=== PATIENT | female | born 2000 | race Caucasian/White ===

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

== ENCOUNTER 2019-01-23 16:17 | Emergency (ER) | payer SELFPAY ==
--- NOTE | 2019-01-23 17:07 | ER Document Report ---
ED Medical Screen (RME) - General Chief Complaint: Vaginal Bleeding Stated Complaint: ISSUE Time Seen by Provider: 01/23/19 17:02 Mode of Arrival: Ambulatory Information source: Patient Notes: This 18-year-old female presents emergency department with abdominal cramping since early in the morning. Patient reports she went out to [employer] out walk around and she woke up with abdominal cramping last night. She reports she took Tylenol without relief of symptoms rating the cramping 4 out of 5. She denies other symptoms such as fever vomiting diarrhea. 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 She reports on her last since we cannot see the on the ultrasound, you will need a beta-hCG blood level repeated. Please return to the outpatient lab at [facility] with your lab slip for this repeat test in 48 hours. Since ectopic can cause in a matter of hours, you must not be left alone at this time until you are cleared by your doctor for this diagnosis. Until then please mainatain pelvic rest, meaning no sex until cleared to do so. Return right away with vaginal bleeding or severe pain. She lost amniotic fluid and they had to put her on bedrest. She reports she is approximately 18 weeks G3, P1. Patient reports that she has not had care because her Medicaid has not gone through. She denies pain with void. She denies vaginal bleeding. She reports normal vaginal discharge. I have greeted and performed a rapid initial assessment of this patient. A comprehensive ED assessment and evaluation of the patient, analysis of test re sults and completion of the medical decision making process will be conducted by additional ED providers. Dictation of this chart was performed using voice recognition software; therefore, there may be some unintended grammatical errors. TRAVEL OUTSIDE OF THE [place] IN LAST 30 DAYS: No - Related Data Allergies/Adverse Reactions: Penicillins Allergy (Verified 01/23/19 16:19) Past Medical History Renal/ Medical History: Reports: Hx Ovarian Cysts. Denies: Hx Peritoneal Dialysis Past Surgical History: Reports: Hx Orthopedic Surgery - foot - Immunizations Immunizations up to date: Yes Physical Exam - Vital signs Vitals: Temp Pulse Resp BP Pulse Ox 98.3 F 87 18 107/54 L 96 01/23/19 16:21 01/23/19 16:21 01/23/19 16:21 01/23/19 16:21 01/23/19 16:21 Course - Vital Signs Vital signs: Temp Pulse Resp BP Pulse Ox 98.3 F 87 18 107/54 L 96 01/23/19 16:21 01/23/19 16:21 01/23/19 16:21 01/23/19 16:21 01/23/19 16:21
[2019-01-23 17:42] LABS: ABSOLUTE EOSINOPHILS # (AUTO) 0.1 10^3/uL (0.0-0.6); ABSOLUTE LYMPHOCYTES (AUTO) 1.9 10^3/uL (0.5-4.7); ABSOLUTE MONOCYTES (AUTO) 0.5 10^3/uL (0.1-1.4); ABSOLUTE NEUT (AUTO) 5.5 10^3/uL (1.7-8.2); BASOPHILS % (AUTO) 0.2 % (0-2); EOSINOPHILS % (AUTO) 1.2 % (0-6); HEMATOCRIT 30.8 % (36.0-47.0); HEMOGLOBIN 10.9 g/dL (12.0-15.5); LYMPHOCYTES % (AUTO) 23.4 % (13-45); MEAN CORPUSCULAR HEMOGLOBIN 28.2 pg (27.0-33.4); MEAN CORPUSCULAR HGB CONC 35.4 g/dL (32.0-36.0); MEAN CORPUSCULAR VOLUME 80 fl (80-97); MONOCYTES % (AUTO) 6.5 % (3-13); PLATELET COUNT 178 10^3/uL (150-450); RED BLOOD COUNT 3.87 10^6/uL (3.72-5.28); RED CELL DISTRIBUTION WIDTH 14.9 % (11.5-14.0); SEGMENTED NEUTROPHILS % (AUTO) 68.7 % (42-78); TOTAL CELLS COUNTED % (AUTO) 100 %
[2019-01-23 17:50] LABS: APPEARANCE,URINE CLOUDY; BILIRUBIN,URINE NEGATIVE (NEGATIVE); COLOR,URINE YELLOW; GLUCOSE, URINE NEGATIVE (NEGATIVE); KETONES,URINE NEGATIVE (NEGATIVE); LEUKOCYTE ESTERASE,URINE SMALL (NEGATIVE); NITRITE,URINE NEGATIVE (NEGATIVE); PROTEIN,URINE NEGATIVE (NEGATIVE); UROBILINOGEN,URINE NEGATIVE mg/dL (<2.0)
[2019-01-23 18:02] LABS: ALBUMIN 3.6 g/dL (3.7-5.6); ALKALINE PHOSPHATASE 64 U/L (50-135); ANION GAP 7 (5-19); ASPARTATE AMINO TRANSFERASE 20 U/L (5-30); BILIRUBIN,DIRECT 0.2 mg/dL (0.0-0.4); BILIRUBIN,TOTAL 0.3 mg/dL (0.2-1.3); BLOOD UREA NITROGEN 7 mg/dL (7-20); CALCIUM 8.9 mg/dL (8.4-10.2); CARBON DIOXIDE 24 mmol/L (22-30); CHLORIDE 106 mmol/L (98-107); GLUCOSE 88 mg/dL (75-110); POTASSIUM 3.7 mmol/L (3.6-5.0); TOTAL PROTEIN 6.4 g/dL (6.3-8.2)
--- NOTE | 2019-01-23 18:33 | RADIOLOGY REPORT (SQ) ---
EXAM DESCRIPTION: U/S OB 14+ TRNABD 1GES W/O DOP COMPLETED DATE/TIME: 01/23/2019 6:16 pm REASON FOR STUDY: preg. 18 w abd cramping COMPARISON: PELVIC ULTRASOUND 11/29/2018 TECHNIQUE: Static and Dynamic grayscale imaging performed of gravid uterus using transabdominal appr oach. Additional selected color Doppler and spectral images recorded. All stored on PACS. LIMITATIONS: None. FINDINGS: FETUSES SEEN:1 EGA: 17 weeks 4 days Calculated using BPD,FL,HC,AC documented on images. No discrepancy with clinica l dates. MANNY: 06/29/2019 EFW: 184 grams PERCENTILE: 97% LVP: 4.2 cm PLACENTA: Posterior. GRADE: I PRESENTATION: Vertex ANATOMY: HEART RATE: 152 beats per minute. FOUR CHAMBER HEART: Visualized. THREE VESSEL CORD: Yes. CORD INSERTION: Visualized. KIDNEYS AND BLADDER: Visualized. Appear normal. STOMACH: Visualized. Appears normal. SPINE: Normal as visualized. BRAIN AND LATERAL VENTRICLES: Visualized. Appear normal. OTHER: No other significant finding. MATERNAL ADNEXA: Maternal ovaries not visualized. CERVICAL LENGTH: 2.6 cm Closed. OTHER: No other significant finding. IMPRESSION: LIVING INTRAUTERINE . ESTIMATED GESTATIONAL AGE 17 weeks 4 days NO VISUALIZED ANOMALIES OR OTHER ACUTE FINDINGS. Trimester of : Second trimester - 13 weeks 1 day to 27 weeks 6 days. TECHNICAL DOCUMENTATION: JOB ID: [id number] [employer]- All Rights Reserved Reading location - IP/workstation name: [email or web address]
--- NOTE | 2019-01-23 19:06 | ER Document Report ---
ED General - General Chief Complaint: Vaginal Bleeding Stated Complaint: ISSUE Time Seen by Provider: 01/23/19 17:02 Mode of Arrival: Ambulatory Notes: 18-year-old female G3, P1 approximately 18-week female presents emergency department with abdominal cramping since early in the morning. Patient reports she went out to [employer] out walk around and she woke up with abdominal cramping last night. She reports she took Tylenol without relief of symptoms rating the cramping 4 out of 5. She denies other symptoms such as fever vomiting diarrhea. Patient reports that she has not had care because her Medicaid has not gone through. She denies pain with void. She denies vaginal bleeding. She reports normal vaginal discharge. TRAVEL OUTSIDE OF THE [place] IN LAST 30 DAYS: No - Related Data Allergies/Adverse Reactions: Penicillins Allergy (Verified 01/23/19 16:19) Past Medical History - General Information source: Patient - Social History Smoking Status: Never Smoker Chew tobacco use (# tins/day): No Frequency of alcohol use: None Drug Abuse: None Family History: Reviewed & Not Pertinent Patient has suicidal ideation: No Patient has homicidal ideation: No Renal/ Medical History: Reports: Hx Ovarian Cysts. Denies: Hx Peritoneal Dialysis Past Surgical History: Reports: Hx Orthopedic Surgery - foot - Immunizations Immunizations up to date: Yes Review of Systems - Review of Systems Constitutional: See HPI EENT: No symptoms reported Cardiovascular: See HPI Respiratory: See HPI Gastrointestinal: See HPI Genitourinary: See HPI Female Genitourinary: See HPI Musculoskeletal: See HPI Skin: No symptoms reported Hematologic/Lymphatic: No symptoms reported Neurological/Psychological: No symptoms reported Physical Exam - Vital signs Vitals: Temp Pulse Resp BP Pulse Ox 98.3 F 87 18 107/54 L 96 01/23/19 16:21 01/23/19 16:21 01/23/19 16:21 01/23/19 16:21 01/23/19 16:21 - Notes Notes: PHYSICAL EXAMINATION: Reviewed vital signs and charting by RN GENERAL: Alert, interacts well. No acute distress. HEAD: Normocephalic, atraumatic. EYES: Pupils equal and round. Extraocular movements intact. NECK: Full range of motion. Trachea midline. EXTREMITIES: Moves all 4 extremities spontaneously. No edema, No cyanosis. PSYCH: Normal affect, normal mood. SKIN: Warm, dry, normal turgor. No rashes or lesions noted. Course - Re-evaluation Re-evalutation: 01/23/19 19:16 Patient presents asymptomatic other than some lower abdominal cramping most lik sherrell secondary to activity yesterday. No abnormal discharge, no bleeding, normal obstetrics ultrasound. Patient was very rude and dismissive when I handed her the ultrasound report in the room. Strictly asked for a disk and had no concerns. Based on labs and ultrasound there is nothing concerning here and she is stable for discharge. - Vital Signs Vital signs: Temp Pulse Resp BP Pulse Ox 98.3 F 87 18 107/54 L 96 01/23/19 16:21 01/23/19 16:21 01/23/19 16:21 01/23/19 16:21 01/23/19 16:21 - Laboratory Result Diagrams: 01/23/19 17:10 01/23/19 17:10 Laboratory results interpreted by me: 01/23/19 01/23/19 01/23/19 17:10 17:10 17:10 Hgb 10.9 L Hct 30.8 L RDW 14.9 H Creatinine 0.41 L Albumin 3.6 L Ur Leukocyte Esterase SMALL H Discharge - Discharge Clinical Impression: Abdominal cramping affecting Condition: Good Disposition: HOME, SELF-CARE Additional Instructions: You were seen in the emergency department for abdominal cramping. It is most likely because you are walking around last night. Your ultrasound was normal. You can request a copy of the disc by going to medical records after 24 hours. If you develop worsening, severe cramping, vaginal bleeding, abnormal vaginal discharge, dizziness/lightheadedness, intractable nausea or vomiting, acute s hortness of breath or chest pain, you pass out or you have any other concerning symptoms return to the emergency department. Please establish care with an [employer] SUPERVISOR.
[2019-01-23 19:25] VITALS: BP 107/80
== END 2019-01-23 19:21 | disposition home or self-care (01) ==
LOC: ER 16:17
DX: O26.92 Pregnancy related conditions, unspecified, second trimester (principal); R10.9 Unspecified abdominal pain; Z3A.18 18 weeks gestation of pregnancy; Z88.0 Allergy status to penicillin
CPT/HCPCS: 36415; 76805; 80053; 81001; 85025

== ENCOUNTER 2019-02-07 10:06 | Emergency (ER) | payer SELFPAY ==
[2019-02-07 10:13] VITALS: BP 115/72
[2019-02-07] MEDS ORDERED: NORMAL SALINE 1000 ML 1,000 ML IV ONE (10:39)
--- NOTE | 2019-02-07 10:42 | ER Document Report ---
ED Medical Screen (RME) - General Chief Complaint: Vaginal Bleeding Stated Complaint: VAGINAL BLEEDING Time Seen by Provider: 02/07/19 10:24 Mode of Arrival: Ambulatory Information source: Patient Notes: 18-year-old female presented to ED for complaint of vaginal bleeding pelvic pain and increased cramping and she is somewhere between 19 and 20 weeks . I have spoken with labor and delivery and they said unless she is 20 weeks she cannot come up to labor and delivery. I have spoken with Dr. Pena who stated he would come and examined the patient himself in the emergency room. I have spoken with the charge nurse and asked her to please be sure that 1 of the ER providers goes in and examined the patient. Patient is alert oriented respirations regular and unlabored speaking in full sentences. Basic labs and ultrasound have been ordered on the patient. Her last RhoGam was B+ I have greeted and performed a rapid initial assessment of this patient. A comprehensive ED assessment and evaluation of the patient, analysis of test results and completion of medical decision making process will be conducted by an additional ED providers. Dictation of this chart was performed using voice recognition software; therefore, there may be some unintended grammatical errors. TRAVEL OUTSIDE OF THE [place] IN LAST 30 DAYS: No - Related Data Allergies/Adverse Reactions: Penicillins Allergy (Verified 01/23/19 16:19) Past Medical History Renal/ Medical History: Reports: Hx Ovarian Cysts. Denies: Hx Peritoneal Dialysis Past Surgical History: Reports: Hx Orthopedic Surgery - foot - Immunizations Immunizations up to date: Yes Physical Exam - Vital signs Vitals: Temp Pulse Resp BP Pulse Ox 98.2 F 94 H 15 115/72 100 02/07/19 10:12 02/07/19 10:12 02/07/19 10:12 02/07/19 10:12 02/07/19 10:12 Course - Vital Signs Vital signs: Temp Pulse Resp BP Pulse Ox 98.2 F 94 H 15 115/72 100 02/07/19 10:12 02/07/19 10:12 02/07/19 10:12 02/07/19 10:12 02/07/19 10:12
--- NOTE | 2019-02-07 11:12 | ER Document Report ---
HPI - HPI Patient complains to provider of: vaginal spotting in Time Seen by Provider: 02/07/19 10:24 Onset: Yesterday Onset/Duration: Gradual, Waxing and waning Quality of pain: No pain Severity: Mild Context: 18 Yr old female patient, with the listed pmh, here for vaginal spotting in second trimester for 2 days. she states she is approx 19w and 5 days . Denies heavy vaginal bleeding, clots, acute blood loss symptoms, or passage of recognizable tissue. No abdominal pain. Last menstrual period September 17, 2018. She plans to follow-up with the health department for her future [facility] care. She is . No abdominal surgeries. No history of fibroids, endometriosis, or renal stones. Normal bowel movements. No UTI symptoms. No URI symptoms. No recent antibiotics or steroids. No history of diabetes or asthma. No vaginal discharge/complaints/lesions or concerns for STDs. No ripping or tearing sensation. Hasn't taken anything for her symptoms. No excessive NSAID use, Tylenol use, or EtOH. No prior history of gallbladder disease, pancreatitis, ulcers, GI bleed, GERD, IBS, Crohn's, or UC. no change in color or caliber or stool. no blood thinners. no fall or trauma. no other associated sx. Similar symptoms previously: No Recently seen / treated by doctor: No - ROS Systems Reviewed and Negative: Yes All other systems reviewed and negative - to include 10 systems, unless mentioned in the hpi - REPRODUCTIVE LMP: 09/22/18 Reproductive: REPORTS: : Past Medical History - General Information source: Patient - Social History Smoking Status: Never Smoker Frequency of alcohol use: None Drug Abuse: None Family History: Reviewed & Not Pertinent Patient has suicidal ideation: No Patient has homicidal ideation: No Renal/ Medical History: Reports: Hx Ovarian Cysts. Denies: Hx Peritoneal Dialysis Past Surgical History: Reports: Hx Orthopedic Surgery - foot - Immunizations Immunizations up to date: Yes Vertical Provider Document - CONSTITUTIONAL Agree With Documented VS: Yes Exam Limitations: No Limitations General Appearance: No Apparent Distress Notes: >>>> PHYSICAL_EXAM: GENERAL_APPEARANCE: well_nourished, alert, cooperative, no_acute_distress, no_obvious_discomfort. Pleasant, young female, smiling, speaking in full sentences, in no sign of pain or resp distress, easily sitting up, boyfriend at bedside VITALS: reviewed, see vital signs table. HEAD: normocephalic, atraumatic. no rashid signs. no raccoon eyes. EYES: PERRL, EOMI, (-)scleral icterus. NOSE: no_nasal_discharge. MOUTH: (-)decreased moisture. THROAT: no_tonsilar_inflammation/hypertrophy/exudate NECK: supple, no_neck_tenderness, full rom. full strength. BACK: no midline_back_tenderness. no step offs or deformities CHEST_WALL: no_chest_tenderness. LUNGS: no_wheezing, (-)accessory muscle use, good air exchange bilateral. HEART: normal_rate, normal_rhythm, ABDOMEN: normal_BS, soft, abdomen-diffuse, non-tender, uterus palpated just below the umbilicus, (-)guarding, (-)rebound, no distension or peritoneal signs. neg murphys. neg mcburneys. no cva tenderness. neg heel strike. neg obturator. neg psoas. neg rovsign. PELVIC: performed by dr guillermo [facility], who came down to the ER to evaluate her, so this wasn't repeated, and swabs for wet prep and gc/chlam taken vaginally. please refer to dr guillermo's note for details of the pelvic exam. RECTAL: deferred EXTREMITIES: strength 5/5 in all_extremities, good pulses in all_extremities, no_edema, no_swelling\tenderness. full rom. normal gait. good hand chute man. brisk cap refill. SKIN: warm, dry, good_color, no_rash. no grossly visible overlying skin changes to suggest trauma NEURO: motor_intact, sensory_intact. MENTAL_STATUS: normal_affect, speech_clear, oriented_X_3, responds_appropriately to questions. - INFECTION CONTROL TRAVEL OUTSIDE OF THE [place] IN LAST 30 DAYS: No Course - Re-evaluation Re-evalutation: 02/07/19 11:32 Pt here for vaginal spotting in second trimester since yest intermittently. She has no abdominal tenderness to palpation on exam. Labs were unremarkable other than a mild anemia which is chronic and at her baseline and chlamydia positive on vaginal swab. she denies any heavy bleeding or acute blood loss sx. She is blood type B+ and doesn't require RhoGam. Her transvaginal OB ultrasound showed a living IUP at 19w 5d with fht at 153 bpm and was otherwise neg for anything acute per radiology and reviewed by myself. Dr. Guillermo, on-call [facility], was gracious enough to come down to the ER and evaluate the patient. He did perform a pelvic exam himself and stated that the cervix was closed and there was no bleeding in the vault; however, pt did have a retained tampon that he removed completely intact and without complication, and he advised as long as her labs and ultrasound were negative the patient was stable for discharge home and no further work-up was required here today and she did not need to go upstairs to OB for further monitoring and could f/u closely with obgyn out pt for further workup of her . He also advised to get a gonorrhea and chlamydia swab along with a wet prep swab which I did collect. I did not repeat the rest of the pelvic exam since he already had done it, please refer to his note for details of his hnp and pelvic exam. She had no concerns for STDs however her chlamydia did come back positive prior to her dc and US resulting. she is pcn allergic with hives and refused rocephin, so 1g of azithromycin was recommended per review of utd on tx of chlamydia, and this was given to the pt along with merarifrhailey. Again, Dr. Guillermo did inform me that the patient did have a retained tampon at that apparently had been in there since September when she had her last period. She has no signs of toxic shock syndrome and he advised no further workup or tx needed in regards to this and she was stable for close out pt f/u of this also. advised pelvic rest. no heavy lifting. prenatals. tylenol prn any pain. no intercourse while symptomatic, untile her partner gets tested/treated, and for atleast a week and after she has repeat testing to insure she is chlamydia and gonorrhea free. advised to f/u with OBGYN in 1-2 days. return for any worsening symptoms. vss. well appearing. satting well on ra. neurononfocal. pt understands and agrees to plan. On reexam, pt improved with tx listed. remained stable. nontoxic. well appearing. pain controlled. tolerating po. requesting to go home. serial abd exams remain benign. case discussed with ER Attending, Dr. Bermeo and Dr. Guillermo, who directed and agrees with plan of care and advised no further workup indicated at this time and pt is stable for dc home with close f/u with obgyn. Documentation achieved through voice recording which my lead to some occasional accidental typographical errors. Extensive efforts have been made to proof read documentation to make sure these are the least as possible. Category Date Time Status U/S OB 14+ TRNABD 1GES W/O DOP [US] Stat Exams 02/07/19 10:33 Ordered CBC WITH DIFF [HEME] Stat Lab 02/07/19 11:06 Received [facility] PCR ENDO INHOUSE [MO] Stat Lab 02/07/19 11:29 Uncollected COMPREHENSIVE METABOLIC PANEL [CHEM] Stat Lab 02/07/19 11:06 Received HCG QUANTITATIVE [CHEM] Stat Lab 02/07/19 11:28 Ordered URINALYSIS [URIN] Stat Lab 02/07/19 10:34 Uncollected WET MOUNT [MO] Stat Lab 02/07/19 11:28 Uncollected Normal Saline 1000 ml [NaCl 0.9% 1000 ml IV Soln] 1,000 Med 02/07/19 10:39 Active ml IV NOW - Vital Signs Vital signs: Temp Pulse Resp BP Pulse Ox 98.2 F 94 H 15 115/72 100 02/07/19 10:12 02/07/19 10:12 02/07/19 10:12 02/07/19 10:12 02/07/19 10:12 Temp Pulse Resp BP Pulse Ox 02/07/19 10:12 98.2 F 94 H 15 115/72 100 - Laboratory Result Diagrams: 02/07/19 11:06 02/07/19 11:06 Laboratory results interpreted by me: Labs- Entire Visit 02/07/19 02/07/19 02/07/19 11:06 11:06 11:06 WBC 9.3 RBC 3.53 L Hgb 10.0 L Hct 28.4 L MCV 80 MCH 28.3 MCHC 35.2 RDW 14.4 H Plt Count 174 Lymph % (Auto) 14.7 Addison % (Auto) 6.2 Eos % (Auto) 0.8 Baso % (Auto) 0.1 Absolute Neuts (auto) 7.3 Absolute Lymphs (auto) 1.4 Absolute Monos (auto) 0.6 Absolute Eos (auto) 0.1 Absolute Basos (auto) 0.0 Seg Neutrophils % 78.2 H Sodium 135.5 L Potassium 3.7 Chloride 108 H Carbon Dioxide 21 L Anion Gap 7 BUN 6 L Creatinine 0.39 L Est GFR ( Amer) > 60 Est GFR (MDRD) Non-Af > 60 Glucose 93 Calcium 8.9 Total Bilirubin 0.4 Direct Bilirubin 0.2 Neonat Total Bilirubin Not Reportable Neonat Direct Bilirubin Not Reportable Neonat Indirect Bili Not Reportable AST 39 H ALT 22 Alkaline Phosphatase 64 Total Protein 6.1 L Albumin 3.3 L Beta HCG, Quant 30937.00 H Total Beta HCG POSITIVE Urine Color Urine Appearance Urine pH Ur Specific [place] Urine Protein Urine Glucose (UA) Urine Ketones Urine Blood Urine Nitrite Urine Bilirubin Urine Urobilinogen Ur Leukocyte Esterase Urine WBC (Auto) Urine RBC (Auto) U Hyaline Cast (Auto) Squamous Epi Cells Auto Amorphous Sediment Auto Urine Mucus (Auto) Urine Ascorbic Acid Epi Cells (Wet Prep) Trichomonas (Wet Prep) Vaginal WBC Vaginal RBC Vaginal Yeast Chlamydia DNA (PCR) N.gonorrhoeae DNA (PCR) 02/07/19 02/07/19 02/07/19 11:20 11:20 12:30 WBC RBC Hgb Hct MCV MCH MCHC RDW Plt Count Lymph % (Auto) Addison % (Auto) Eos % (Auto) Baso % (Auto) Absolute Neuts (auto) Absolute Lymphs (auto) Absolute Monos (auto) Absolute Eos (auto) Absolute Basos (auto) Seg Neutrophils % Sodium Potassium Chloride Carbon Dioxide Anion Gap BUN Creatinine Est GFR ( Amer) Est GFR (MDRD) Non-Af Glucose Calcium Total Bilirubin Direct Bilirubin Neonat Total Bilirubin Neonat Direct Bilirubin Neonat Indirect Bili AST ALT Alkaline Phosphatase Total Protein Albumin Beta HCG, Quant Total Beta HCG Urine Color YELLOW Urine Appearance SLIGHTLY-CLOUDY Urine pH 8.0 Ur Specific [place] 1.013 Urine Protein NEGATIVE Urine Glucose (UA) NEGATIVE Urine Ketones NEGATIVE Urine Blood NEGATIVE Urine Nitrite NEGATIVE Urine Bilirubin NEGATIVE Urine Urobilinogen NEGATIVE Ur Leukocyte Esterase NEGATIVE Urine WBC (Auto) 1 Urine RBC (Auto) 0 U Hyaline Cast (Auto) 1 Squamous Epi Cells Auto 1 Amorphous Sediment Auto TRACE Urine Mucus (Auto) RARE Urine Ascorbic Acid NEGATIVE Epi Cells (Wet Prep) 3+ EPITHELIALS SEEN Trichomonas (Wet Prep) NO TRICHOMONAS SEEN Vaginal WBC FEW WBCS SEEN Vaginal RBC FEW RBCS SEEN Vaginal Yeast NO YEAST SEEN Chlamydia DNA (PCR) DETECTED H N.gonorrhoeae DNA (PCR) NOT DETECTED - Diagnostic Test Radiology reviewed: Image reviewed, Reports reviewed Radiology results interpreted by me: Obstetrics Ultrasound 02/07/19 10:33 IMPRESSION: LIVING INTRAUTERINE . ESTIMATED GESTATIONAL AGE 19 weeks 5 days NO VISUALIZED ANOMALIES. Trimester of : Second trimester - 13 weeks 1 day to 27 weeks 6 days. Discharge - Discharge Clinical Impression: Chlamydia, Threatened , Vaginal bleeding during Anemia Qualifiers: Anemia type: unspecified type Qualified Code(s): D64.9 - Anemia, unspecified Condition: Good Disposition: HOME, SELF-CARE Instructions: Threatened Abortions ( Patients) Additional Instructions: Follow-up with obgyn in 1 to 2 days. Return for any worsening symptoms. tylenol as needed for any pain or fever if not allergic. drink plenty of fluids. vitamins. no intercourse for atleast a week or while you have any symptoms or until cleared by obgyn. f/u with the health dept for any further desired std testing. condom use for safe sex. pelvic rest. no heavy lifting. vitamins. have your partner tested/treated before engaging in any intercourse. since you are penicillin allergic and did not want to take the rocephin, and only took the azithromycin for treatment of gonorrhea and chlamydia, you need to have repeat chlamydia and gonorrhea testing in a week to insure you are chlamydia and gonorrhea free. Referrals: NOVA GOMES MD [Primary Care Provider] - Follow up as needed
[2019-02-07 11:23] LABS: ABSOLUTE EOSINOPHILS # (AUTO) 0.1 10^3/uL (0.0-0.6); ABSOLUTE LYMPHOCYTES (AUTO) 1.4 10^3/uL (0.5-4.7); ABSOLUTE MONOCYTES (AUTO) 0.6 10^3/uL (0.1-1.4); ABSOLUTE NEUT (AUTO) 7.3 10^3/uL (1.7-8.2); BASOPHILS % (AUTO) 0.1 % (0-2); EOSINOPHILS % (AUTO) 0.8 % (0-6); HEMATOCRIT 28.4 % (36.0-47.0); LYMPHOCYTES % (AUTO) 14.7 % (13-45); MEAN CORPUSCULAR HEMOGLOBIN 28.3 pg (27.0-33.4); MEAN CORPUSCULAR HGB CONC 35.2 g/dL (32.0-36.0); MEAN CORPUSCULAR VOLUME 80 fl (80-97); MONOCYTES % (AUTO) 6.2 % (3-13); PLATELET COUNT 174 10^3/uL (150-450); RED BLOOD COUNT 3.53 10^6/uL (3.72-5.28); RED CELL DISTRIBUTION WIDTH 14.4 % (11.5-14.0); SEGMENTED NEUTROPHILS % (AUTO) 78.2 % (42-78); TOTAL CELLS COUNTED % (AUTO) 100 %; WHITE BLOOD COUNT 9.3 10^3/uL (4.0-10.5)
[2019-02-07 11:40] LABS: ALBUMIN 3.3 g/dL (3.7-5.6); ALKALINE PHOSPHATASE 64 U/L (50-135); ANION GAP 7 (5-19); ASPARTATE AMINO TRANSFERASE 39 U/L (5-30); BILIRUBIN,DIRECT 0.2 mg/dL (0.0-0.4); BILIRUBIN,TOTAL 0.4 mg/dL (0.2-1.3); BLOOD UREA NITROGEN 6 mg/dL (7-20); CALCIUM 8.9 mg/dL (8.4-10.2); CARBON DIOXIDE 21 mmol/L (22-30); CHLORIDE 108 mmol/L (98-107); GLUCOSE 93 mg/dL (75-110); POTASSIUM 3.7 mmol/L (3.6-5.0); TOTAL PROTEIN 6.1 g/dL (6.3-8.2)
[2019-02-07 11:42] LABS: T.VAGINALIS (WET MOUNT) NO TRICHOMONAS SEEN; YEAST (WET MOUNT) NO YEAST SEEN
[2019-02-07 11:43] LABS: EPITHELIALS (WET MOUNT) 3+ EPITHELIALS SEEN; RBCS (WET MOUNT) FEW RBCS SEEN; WBCS (WET MOUNT) FEW WBCS SEEN
--- NOTE | 2019-02-07 12:15 | CONSULTATION REPORT E ---
Consultation Report NAME: PATRICIA MURRAY : 2000 AGE: 18Y DATE: 02/07/2019 TO: Junito DOW M.D. FROM: LIANET CALLES Requesting Physician HISTORY OF PRESENT ILLNESS: The patient is a 18-year-old 2, para 1, with a 2-1/2-year-old whose stated last menstrual period was sometime in October who presented to the ER complaining of bleeding. She stated she woke up this morning and there was blood between her legs and on her thighs. The patient denies any other problems. She has not been seen during this and denies any change in bowel or bladder habits. The patient apparently had an ultrasound at some point and is either 19 or 20 weeks. On patient exam, her cervix is long and closed. There was a tampon in the cul-de-sac that was removed. The ultrasound here is pending. There was no blood on the glove. ASSESSMENT: An approximately 20-week IUP with unknown bleeding. PLAN: If the ultrasound is okay, let her return home and follow up either in our office or with the health department or return here if she has any further bleeding or problems. DICTATING PHYSICIAN: Junito DOW M.D. [id number] PHY#: [id number] ID: [id number] JOB#: [id number] ACCT: [id number] cc:Junito DOW M.D. >
[2019-02-07 12:50] LABS: AMORPHOUS SEDIMENT,URINE TRACE /HPF; APPEARANCE,URINE SLIGHTLY-CLOUDY; BILIRUBIN,URINE NEGATIVE (NEGATIVE); COLOR,URINE YELLOW; GLUCOSE, URINE NEGATIVE (NEGATIVE); KETONES,URINE NEGATIVE (NEGATIVE); LEUKOCYTE ESTERASE,URINE NEGATIVE (NEGATIVE); NITRITE,URINE NEGATIVE (NEGATIVE); PROTEIN,URINE NEGATIVE (NEGATIVE); URINE SPECIFIC GRAVITY 1.013; UROBILINOGEN,URINE NEGATIVE mg/dL (<2.0)
[2019-02-07 13:10] LABS: CHLAM PCR DETECTED (NOT DETECT)
--- NOTE | 2019-02-07 13:48 | RADIOLOGY REPORT (SQ) ---
EXAM DESCRIPTION: U/S OB 14+ TRNABD 1GES W/O DOP COMPLETED DATE/TIME: 02/07/2019 12:46 pm REASON FOR STUDY: 19-20 weeks pain and bleeding COMPARISON: 01/23/2019 TECHNIQUE: Static and Dynamic grayscale imaging performed of gravid uterus using transabdominal appr oach. Additional selected color Doppler and spectral images recorded. All stored on PACS. LIMITATIONS: None. FINDINGS: FETUSES SEEN:1 EGA: 19 weeks 5 days Calculated using BPD,FL,HC,AC documented on images. No discrepancy with clinica l dates. MANNY: 06/29/2019 EFW: 2 in 79 grams PERCENTILE: Not applicable. Fetus less than or equal to 20 weeks gestation. MARTIN: Adequate PLACENTA: Fundal. Grade 1 PRESENTATION: Cephalic. ANATOMY: HEART RATE: 153 beats per minute. FOUR CHAMBER HEART: No THREE VESSEL CORD: Yes. CORD INSERTION: Visualized. KIDNEYS AND BLADDER: Visualized. Appear normal. STOMACH: No SPINE: No BRAIN AND LATERAL VENTRICLES: No OTHER: No other significant finding. MATERNAL ADNEXA: Maternal ovaries not visualized. CERVICAL LENGTH: 2.6 cm Closed. OTHER: No other significant finding. IMPRESSION: LIVING INTRAUTERINE . ESTIMATED GESTATIONAL AGE 19 weeks 5 days NO VISUALIZED ANOMALIES. Trimester of : Second trimester - 13 weeks 1 day to 27 weeks 6 days. TECHNICAL DOCUMENTATION: JOB ID: [id number] [employer]- All Rights Reserved Reading location - IP/workstation name: [email or web address]
[2019-02-07] MEDS ORDERED: AZITHROMYCIN 1 GM SUSP PACKET PO ONE ×2 (14:30→14:43)
[2019-02-07] MEDS ORDERED: CEFTRIAXONE INJ 250 MG VIAL IM ONE (14:30)
[2019-02-07] MEDS ORDERED: LIDOCAINE 1% INJ-PF (10 MG/ML) 30 ML SDV NEB ONE (14:30)
[2019-02-07] MEDS ORDERED: ONDANSETRON 4 MG TAB.RAPDIS PO ONE (14:43)
[2019-02-07] MEDS ORDERED: AZITHROMYCIN 250 MG TABLET PO ONE (14:51)
== END 2019-02-07 15:19 | disposition home or self-care (01) ==
LOC: ER 10:06
DX: O20.0 Threatened abortion (principal); O98.812 Other maternal infectious and parasitic diseases complicating pregnancy, second trimester; D64.9 Anemia, unspecified; T19.2XXA Foreign body in vulva and vagina, initial encounter; X58.XXXA Exposure to other specified factors, initial encounter; Z3A.19 19 weeks gestation of pregnancy; Z88.0 Allergy status to penicillin
CPT/HCPCS: 99284; 96360; 96361; 36415; 87210; 84702; 85025; 80053; 81001; 87491; 87591; 76805; S0119; J7030

== ENCOUNTER 2019-04-11 19:19 | Outpatient (CLI) | payer BC, MEDICAID ==
[2019-04-11] MEDS ORDERED: RINGERS SOLUTION,LACTATED 1,000 ML IV PRN (19:47)
[2019-04-11 20:17] LABS: APPEARANCE,URINE CLOUDY; BILIRUBIN,URINE NEGATIVE (NEGATIVE); COLOR,URINE YELLOW; GLUCOSE, URINE 50 mg/dL (NEGATIVE); KETONES,URINE 20 mg/dL (NEGATIVE); LEUKOCYTE ESTERASE,URINE LARGE (NEGATIVE); NITRITE,URINE NEGATIVE (NEGATIVE); PROTEIN,URINE 30 mg/dL (NEGATIVE); URINE SPECIFIC GRAVITY 1.016; UROBILINOGEN,URINE NEGATIVE mg/dL (<2.0)
[2019-04-11 20:34] LABS: BACTERIA (WET MOUNT) 3+ BACTERIA SEEN; RBCS (WET MOUNT) RARE RBCS SEEN; T.VAGINALIS (WET MOUNT) NO TRICHOMONAS SEEN; WBCS (WET MOUNT) 2+ WBCS SEEN; YEAST (WET MOUNT) NO YEAST SEEN
[2019-04-11 20:35] LABS: URINE AMPHETAMINES SCREEN NEGATIVE; URINE BARBITURATES SCREEN NEGATIVE; URINE BENZODIAZEPINES SCREEN NEGATIVE; URINE COCAINE SCREEN NEGATIVE; URINE MARIJUANA (THC) SCREEN NEGATIVE; URINE METHADONE SCREEN NEGATIVE; URINE PHENCYCLIDINE SCREEN NEGATIVE
--- NOTE | 2019-04-11 20:58 | RADIOLOGY REPORT (SQ) ---
US PELVIS EXAM DATE: 04/11/2019 12:00 AM CDT HISTORY: Pelvic pain. COMPARISON: None. TECHNIQUE: Grayscale, color Doppler, and spectral Doppler ultrasound images of the pelvis were obtained. FINDINGS: The cervix measures 1.8 cm in length and is closed. The fetus is in vertex positioning with a heart rate of 143 bpm. Placenta is posterior. MARTIN is 18.7 cm. IMPRESSION: Findings as above.
[2019-04-11] MEDS ORDERED: MAGNESIUM SULFATE 4 GM/100 ML RTUPB IV ONE ×2 (21:42→21:48)
[2019-04-11] MEDS ORDERED: MAGNESIUM SULFATE 20 GM/500 ML RTUINJ IV ONE (21:42)
[2019-04-11] MEDS ORDERED: BETAMET ACET/BETAMET NA INJ 6 MG/1 ML ONE ×2 (21:42→23:21)
[2019-04-11] MEDS ORDERED: MAGNESIUM SULFATE 20 GM/500 ML RTUINJ IV PRN (21:48)
[2019-04-11] MEDS ORDERED: BETAMET ACET/BETAMET NA INJ 6 MG/1 ML IM ONE (21:48)
[2019-04-11] MEDS ORDERED: CLINDAMYCIN 900 MG/D5W RTU 900 MG/50 ML RTUPB IV SCH (22:00)
--- NOTE | 2019-04-11 22:02 | PDOC TRANSFER SUMMARY ---
General Admission Date/PCP: NOVA GOMES MD Admission Date: 04/11/19 Transfer Date: 04/11/19 Accepting Facility: [facility] Accepting Physician: Jerry Arteaga MD Resuscitation Status: Full Code - Transfer Diagnosis (1) contractions Is this a current diagnosis for this admission?: Yes Diagnosis Summary: Pt came in c/o cramping and vaginal spotting. Concerned due to h/o PPROM in past with prior . (2) Vaginal bleeding in Is this a current diagnosis for this admission?: Yes Diagnosis Summary: Came in due to vaginal bleeding. denies recent intercourse and denies recent cervical exam. - Transfer Medications Home Medications: Progesterone, Micronized [Prometrium] 2 tab PV DAILY 04/11/19 Transfer Medications: Current Medications Betamethasone Acet/Betameth SodPhos (Celestone Inj 6 Mg/1 Ml) 12 mg IM NOW ONE Stop: 04/11/19 21:49 Lactated Ringer's (Lactated Ringers 1000 Ml Iv Soln) 1,000 mls @ 125 mls/hr IV CONTINUOUS PRN PRN Reason: THIS MED IS NOT "PRN" Stop: 05/11/19 19:46 Magnesium Sulfate (Magnesium Sulfate Rtu 4 Gm/100 Ml Premix Bag) 4 gm in 100 mls @ 200 mls/hr IV NOW ONE Stop: 04/11/19 22:17 Magnesium Sulfate (Magnesium Sulfate Rtu 20 Gm/500 Ml Premix) 20 gm in 500 mls @ 0 mls/hr IV CONTINUOUS PRN PRN Reason: THIS MED IS NOT "PRN" Stop: 05/11/19 21:47 - Allergies Allergies/Adverse Reactions: Penicillins Allergy (Verified 04/11/19 20:39) - Diet/Activity Discharge Diet: As Tolerated Discharge Activity: Activity As Tolerated Hospital Course Hospital Course: 18yo at 29+0ega presents for vaginal bleeding today reports dripping blood on floor and in underwear. Cervix closed on US. US and cultures obtained. GBS pending. US with breech presentation and cvx 1.8cm and closed. Pt has a history of PPROM at 33wks with delivery. She is late to care at 28+6ega on 04/10/2019. She was too late to start 17OHP so prometrium was ordered for her yesterday - she reports that she did take vaginally last night. She had of her labs done yesterday. No results yet of labs done at office yesterday. On toco ctx are irregular but with significant uterine irritability. Physical Exam Vital Signs: Intake & Output 04/10/19 04/11/19 04/12/19 06:59 06:59 06:59 Weight 68.1 kg General appearance: PRESENT: no acute distress, well-developed, well-nourished Head exam: PRESENT: atraumatic, normocephalic Respiratory exam: PRESENT: clear to auscultation marcos. ABSENT: rales, rhonchi, wheezes Cardiovascular exam: PRESENT: RRR. ABSENT: diastolic murmur, rubs, systolic murmur Pulses: PRESENT: normal dorsalis pedis pul GI/Abdominal exam: PRESENT: normal bowel sounds, soft. ABSENT: distended, guarding, mass, organolmegaly, rebound, tenderness Rectal exam: PRESENT: deferred Extremities exam: PRESENT: full ROM. ABSENT: calf tenderness, clubbing, pedal edema Musculoskeletal exam: PRESENT: ambulatory Neurological exam: PRESENT: alert, awake, oriented to person, oriented to place, oriented to time, oriented to situation, CN II-XII grossly intact. ABSENT: motor sensory deficit Psychiatric exam: PRESENT: appropriate affect, normal mood. ABSENT: homicidal ideation, suicidal ideation Skin exam: PRESENT: dry, intact, warm. ABSENT: cyanosis, rash Results Laboratory Results: 04/11/19 19:27 Urine Color YELLOW Urine Appearance CLOUDY Urine pH 6.0 Ur Specific [place] 1.016 Urine Protein 30 H Urine Glucose (UA) 50 H Urine Ketones 20 H Urine Blood NEGATIVE Urine Nitrite NEGATIVE Ur Leukocyte Esterase LARGE H Urine WBC (Auto) 27 Urine RBC (Auto) 6 Impressions: Obstetrics Ultrasound 04/11/19 00:00 IMPRESSION: Findings as above. Status: Imported from PACS
[2019-04-11] MEDS ORDERED: CLINDAMYCIN 900 MG/D5W RTU 900 MG/50 ML RTUPB IV ONE (22:20)
[2019-04-11 22:23] LABS: CHLAM PCR NOT DETECTED (NOT DETECT)
== END 2019-04-11 23:41 | disposition short-term general hospital (02) ==
LOC: LC 19:19
PROVIDERS: ATTEND Student in an Organized Health Care Education/Training Program
PROC: 4A1HXCZ Monitoring of Products of Conception, Cardiac Rate, External Approach (ICD-10-PCS; principal; 2019-04-11)
DX: O46.93 Antepartum hemorrhage, unspecified, third trimester (principal); O60.03 Preterm labor without delivery, third trimester; O09.33 Supervision of pregnancy with insufficient antenatal care, third trimester; Z3A.29 29 weeks gestation of pregnancy; Z88.0 Allergy status to penicillin
CPT/HCPCS: 59899; 87210; 81001; 87081; 80307; 87491; 87591; 76815; J3475 ×2; J3490; J0702; 96372

== ENCOUNTER 2019-04-19 11:08 | Outpatient (CLI) | payer MEDICAID ==
[2019-04-19 11:42] LABS: APPEARANCE,URINE CLEAR; BILIRUBIN,URINE NEGATIVE (NEGATIVE); COLOR,URINE YELLOW; GLUCOSE, URINE 50 mg/dL (NEGATIVE); KETONES,URINE NEGATIVE (NEGATIVE); LEUKOCYTE ESTERASE,URINE NEGATIVE (NEGATIVE); NITRITE,URINE NEGATIVE (NEGATIVE); PROTEIN,URINE NEGATIVE (NEGATIVE); URINE SPECIFIC GRAVITY 1.009; UROBILINOGEN,URINE NEGATIVE mg/dL (<2.0)
[2019-04-19 12:02] LABS: URINE AMPHETAMINES SCREEN NEGATIVE; URINE BARBITURATES SCREEN NEGATIVE; URINE BENZODIAZEPINES SCREEN NEGATIVE; URINE COCAINE SCREEN NEGATIVE; URINE MARIJUANA (THC) SCREEN NEGATIVE; URINE METHADONE SCREEN NEGATIVE; URINE PHENCYCLIDINE SCREEN NEGATIVE
--- NOTE | 2019-04-19 12:15 | RADIOLOGY REPORT (SQ) ---
EXAM DESCRIPTION: U/S OB LIMITED COMPLETED DATE/TIME: 04/19/2019 11:59 am REASON FOR STUDY: contractions, need repeat CL, was 1.8 COMPARISON: 04/11/2019 TECHNIQUE: Limited transvaginal grayscale ultrasound for evaluation of specific requested obstetrica l parameters. LIMITATIONS: None. FINDINGS: CERVICAL LENGTH: 2.9 cm. Closed. MARTIN: 9.8 cm. FHR: 169 beats per minute. PRESENTATION: Cephalic. PLACENTA: Posterior ANATOMY: Not assessed OTHER: No other significant findings. IMPRESSION: LIMITED OBSTETRICAL ULTRASOUND WITH MEASURED PARAMETERS DELINEATED ABOVE. Trimester of : Third trimester - 28 weeks to delivery. TECHNICAL DOCUMENTATION: JOB ID: [id number] [employer]- All Rights Reserved Reading location - IP/workstation name: [email or web address]
[2019-04-19 12:51] LABS: ABSOLUTE EOSINOPHILS # (AUTO) 0.2 10^3/uL (0.0-0.6); ABSOLUTE LYMPHOCYTES (AUTO) 1.9 10^3/uL (0.5-4.7); ABSOLUTE MONOCYTES (AUTO) 0.7 10^3/uL (0.1-1.4); ABSOLUTE NEUT (AUTO) 6.5 10^3/uL (1.7-8.2); BASOPHILS % (AUTO) 0.1 % (0-2); EOSINOPHILS % (AUTO) 1.7 % (0-6); HEMATOCRIT 24.8 % (36.0-47.0); HEMOGLOBIN 8.2 g/dL (12.0-15.5); LYMPHOCYTES % (AUTO) 20.7 % (13-45); MEAN CORPUSCULAR HEMOGLOBIN 25.2 pg (27.0-33.4); MEAN CORPUSCULAR HGB CONC 33.2 g/dL (32.0-36.0); MEAN CORPUSCULAR VOLUME 76 fl (80-97); MONOCYTES % (AUTO) 7.6 % (3-13); PLATELET COUNT 214 10^3/uL (150-450); RED BLOOD COUNT 3.28 10^6/uL (3.72-5.28); RED CELL DISTRIBUTION WIDTH 16.1 % (11.5-14.0); SEGMENTED NEUTROPHILS % (AUTO) 69.9 % (42-78); TOTAL CELLS COUNTED % (AUTO) 100 %; WHITE BLOOD COUNT 9.3 10^3/uL (4.0-10.5)
[2019-04-19] MEDS ORDERED: NIFEDIPINE 10 MG CAPSULE ONE ×2 (12:56→13:19)
[2019-04-19] MEDS ORDERED: NIFEDIPINE 10 MG CAPSULE PO ONE ×2 (12:59→13:19)
== END 2019-04-19 11:30 | disposition home or self-care (01) ==
LOC: LC 11:08
PROVIDERS: ATTEND Obstetrics & Gynecology
PROC: 4A1HXCZ Monitoring of Products of Conception, Cardiac Rate, External Approach (ICD-10-PCS; principal; 2019-04-19)
DX: O60.03 Preterm labor without delivery, third trimester (principal); Z3A.30 30 weeks gestation of pregnancy
CPT/HCPCS: 59899; 36415; 82607; 85025; 86592; 81001; 80307; 76815; J3490

== ENCOUNTER 2019-05-09 21:51 | Emergency (ER) | payer BC, MEDICAID ==
[2019-05-09 23:20] LABS: ALBUMIN 3.3 g/dL (3.7-5.6); ALKALINE PHOSPHATASE 128 U/L (50-135); ANION GAP 8 (5-19); ASPARTATE AMINO TRANSFERASE 19 U/L (5-30); BILIRUBIN,TOTAL 0.3 mg/dL (0.2-1.3); BLOOD UREA NITROGEN 5 mg/dL (7-20); CARBON DIOXIDE 23 mmol/L (22-30); CHLORIDE 108 mmol/L (98-107); GLUCOSE 97 mg/dL (75-110); POTASSIUM 3.3 mmol/L (3.6-5.0); TOTAL PROTEIN 5.9 g/dL (6.3-8.2)
[2019-05-09 23:43] LABS: ABSOLUTE EOSINOPHILS # (AUTO) 0.2 10^3/uL (0.0-0.6); ABSOLUTE LYMPHOCYTES (AUTO) 2.6 10^3/uL (0.5-4.7); ABSOLUTE MONOCYTES (AUTO) 0.8 10^3/uL (0.1-1.4); ABSOLUTE NEUT (AUTO) 7.7 10^3/uL (1.7-8.2); BASOPHILS % (AUTO) 0.2 % (0-2); EOSINOPHILS % (AUTO) 1.5 % (0-6); HEMATOCRIT 25.8 % (36.0-47.0); HEMOGLOBIN 8.4 g/dL (12.0-15.5); LYMPHOCYTES % (AUTO) 23.1 % (13-45); MEAN CORPUSCULAR HEMOGLOBIN 23.5 pg (27.0-33.4); MEAN CORPUSCULAR HGB CONC 32.8 g/dL (32.0-36.0); MONOCYTES % (AUTO) 7.4 % (3-13); PLATELET COUNT 211 10^3/uL (150-450); SEGMENTED NEUTROPHILS % (AUTO) 67.8 % (42-78); TOTAL CELLS COUNTED % (AUTO) 100 %; WHITE BLOOD COUNT 11.3 10^3/uL (4.0-10.5)
[2019-05-10 00:03] LABS: MEAN CORPUSCULAR VOLUME 72 fl (80-97)
[2019-05-10] MEDS ORDERED: NORMAL SALINE 1000 ML 1,000 ML IV ONE (00:04)
[2019-05-10 01:12] LABS: APPEARANCE,URINE CLEAR; BILIRUBIN,URINE NEGATIVE (NEGATIVE); COLOR,URINE YELLOW; GLUCOSE, URINE NEGATIVE (NEGATIVE); KETONES,URINE NEGATIVE (NEGATIVE); LEUKOCYTE ESTERASE,URINE NEGATIVE (NEGATIVE); NITRITE,URINE NEGATIVE (NEGATIVE); PROTEIN,URINE NEGATIVE (NEGATIVE); URINE SPECIFIC GRAVITY 1.015; UROBILINOGEN,URINE NEGATIVE mg/dL (<2.0)
[2019-05-10 01:58] VITALS: BP 127/53
--- NOTE | 2019-05-10 02:03 | ER Document Report ---
Entered by JEANA CHÁVEZ SCRIBE 05/10/19 0005 Acting as scribe for:JENNIFER ARMSTRONG IV, MD ED General - General Chief Complaint: Fainting Stated Complaint: FEELING FAINT/ALMOST PASSED OUT Time Seen by Provider: 05/09/19 23:58 Primary Care Provider: [facility] [Provider Group] - 05/10/19 MICH AGGARWAL MD [Primary Care Provider] - Follow up as needed Mode of Arrival: Ambulatory Information source: Patient Notes: This 18-year-old female patient presents to the emergency department today with complaints of "feeling dizzy and lightheaded" prior to arrival. Patient states that she has had to be transfused in the past when and it "sort of feels similar to that". Patient denies any vaginal bleeding. Patient states she has been drinking fluids. TRAVEL OUTSIDE OF THE [place] IN LAST 30 DAYS: No - Related Data Allergies/Adverse Reactions: Penicillins Allergy (Verified 04/19/19 11:30) Home Medications: Iron. . Vitamin C. Fish Oil. Multivitamin Past Medical History - General Information source: Patient - Social History Smoking Status: Never Smoker Cigarette use (# per day): No Frequency of alcohol use: None Drug Abuse: None Lives with: Family Family History: Reviewed & Not Pertinent Patient has suicidal ideation: No Patient has homicidal ideation: No Renal/ Medical History: Reports: Hx Ovarian Cysts. Denies: Hx Peritoneal Dialysis Past Surgical History: Reports: Hx Orthopedic Surgery - foot - Immunizations Immunizations up to date: Yes Review of Systems - Review of Systems Constitutional: No symptoms reported EENT: No symptoms reported Cardiovascular: See HPI, Dizziness, Lightheaded Respiratory: No symptoms reported Gastrointestinal: No symptoms reported Genitourinary: No symptoms reported Female Genitourinary: denies: Vaginal bleeding Musculoskeletal: No symptoms reported Skin: No symptoms reported Hematologic/Lymphatic: No symptoms reported Neurological/Psychological: No symptoms reported -: Yes All other systems reviewed and negative Physical Exam - Vital signs Vitals: Temp Pulse Resp BP Pulse Ox 98.7 F 99 H 20 109/58 L 99 05/09/19 22:24 05/09/19 22:24 05/09/19 22:24 05/09/19 22:24 05/09/19 22:24 - Notes Notes: Physical Exam: General: Alert, appears well. HEENT: Normocephalic. Atraumatic. PERRL. Extraocular movements intact. O ropharynx clear. Neck: Supple. Non-tender. Respiratory: No respiratory distress. Clear and equal breath sounds bilaterally. Cardiovascular: Regular rate and rhythm. Abdominal: Normal Inspection. Non-tender. No distension. Normal Bowel Sounds. Back: No gross abnormalities. Extremities: Moves all four extremities. Upper extremities: Normal inspection. Normal ROM. Lower extremities: Normal inspection. No edema. Normal ROM. Neurological: Normal cognition. AAOx4. Normal speech. Psychological: Normal affect. Normal Mood. Skin: Warm. Dry. Normal color. Course - Re-evaluation Re-evalutation: 05/10/19 02:04 Patient is resting comfortably. Patient received 1 L of normal saline. Patient is without complaints at this time. Results of ED MSE discussed with patient. All questions were answered. Patient was instructed to follow-up with her [employer] as scheduled. Patient was also instructed in terms of emergency signs/symptoms/reasons to return to the emergency department by calling 911. Patient expresses understanding of results and teaching at time of discharge. - Vital Signs Vital signs: Temp Pulse Resp BP Pulse Ox 97.6 F 85 16 127/53 H 100 05/10/19 01:56 05/10/19 01:56 05/10/19 01:56 05/10/19 01:56 05/10/19 01:56 05/10/19 02:06 Vital signs reviewed by this MD. - Laboratory Result Diagrams: 05/09/19 23:33 05/09/19 22:44 Laboratory results interpreted by me: 05/09/19 05/09/19 05/09/19 22:44 22:44 23:33 WBC 11.3 H RBC 3.60 L Hgb 8.4 L Hct 25.8 L MCV 72 L D MCH 23.5 L RDW 18.0 H Potassium 3.3 L Chloride 108 H BUN 5 L Creatinine 0.42 L Total Protein 5.9 L Albumin 3.3 L Serum HCG, Qual POSITIVE H 05/10/19 02:06 Laboratory results reviewed by this MD. Discharge - Discharge Clinical Impression: Dizziness, nonspecific, Chronic anemia, Third trimester at less than 36 weeks Condition: Good Disposition: HOME, SELF-CARE Instructions: Anemia ([facility]), Dizziness ([facility]) Additional Instructions: Return to the Emergency Department without delay if any worse. You are . care is best started as early in as possible. If you're unsure about continuing this , you should discuss this with your physician or with vault installer at [facility]. You should take only medications approved by your physician. Acetaminophen can safely be taken for minor pains. As a rule, medication for chronic conditions such as asthma or seizures can safely be continued. You should discuss with the physician every medicine you take. Any regular exercise program can be continued. Talk to your physician, however, before engaging in competitive or demanding sports. Alcohol, smoking, and "street drugs" are dangerous to your baby. Cocaine is especially dangerous. Don't use any illicit drugs! HOME CARE INSTRUCTIONS & INFORMATION: Thank you for choosing us for your medical needs. We hope you're satisfied with the care you received. After you leave, you must properly care for your problem and, at the same time, observe its progress. Any condition can change. Some illnesses can change rapidly over hours or days. If your condition worsens, return to the Emergency Department or see your physician promptly. ABOUT YOUR X-RAYS AND EKG'S: If you had an EKG or X-rays taken, they have been read by the Emergency Physician. The X-rays and EKG's will also be read by a Radiologist or [employer] [facility] Manager within 24 hours. If discrepancies are noted, you will be notified by telephone. Please be certain the ED has a correct telephone number & address where you can be reached. Also, realize that some fractures or abnormalities do not show up on initial X-rays. If your symptoms continue, see your physician. ABOUT YOUR LABORATORY TEST: If you had laboratory tests, the results have been reviewed by the Emergency Physician. Some test results (for example cultures) may not be available for several days. You will be contacted if any test result shows you need additional treatment. Please be certain the ED has a correct telephone number and address where you can be reached. ABOUT YOUR MEDICATIONS: You will receive instructions on how to take your medicine on the prescription label you receive. Additional information may be provided by the Pharmacy. If you have questions afterwards, call the ED for clarification or further instructions. Some prescribed medications may cause drowsiness. Do not perform tasks such as driving a car or operating machinery without consulting your Pharmacist. If you feel you need a refill of pain medication, your condition will need re-evaluation. Please do not call for a refill of any medication. ABOUT YOUR SIGNATURE: Signature of this document acknowledges to followin. Understanding that you received emergency treatment and that you may be released before al medical problems are known or treated. Please be certain the ED has a correct phone number & address where you can be reached. 2. Acknowledgement that you will arrange for follow-up care as recommended. 3. Authorization for the Emergency Physician to provide information to your follow-up Physician in order to maximize your care. AT ANY TIME, IF YOUR SYMPTOMS CHANGE SIGNIFICANTLY OR WORSEN OR YOU DEVELOP NEW SYMPTOMS, RETURN TO THE EMERGENCY DEPARTMENT IMMEDIATELY FOR RE-EVALUATION. OUR GOAL IS TO PROVIDE EXCELLENT MEDICAL CARE! WE HOPE THAT WE HAVE MET YOUR EXPECTATIONS DURING YOUR EMERGENCY DEPARTMENT VISIT AND THAT YOU FEEL YOU HAVE RECEIVED EXCELLENT CARE! Referrals: MICH AGGARWAL MD [Primary Care Provider] - Follow up as needed [facility] [Provider Group] - 05/10/19 I personally performed the services described in the documentation, reviewed and edited the documentation which was dictated to the scribe in my presence, and it accurately records my words and actions.
== END 2019-05-10 02:33 | disposition home or self-care (01) ==
LOC: ER 21:51
DX: O99.013 Anemia complicating pregnancy, third trimester (principal); D64.9 Anemia, unspecified; O26.893 Other specified pregnancy related conditions, third trimester; R42 Dizziness and giddiness; Z79.899 Other long term (current) drug therapy; Z3A.00 Weeks of gestation of pregnancy not specified; Z88.0 Allergy status to penicillin
CPT/HCPCS: 99284; 96360; 86900; 86901; 36415; 86850; 84703; 85025; 80053; 81001; J7030

== ENCOUNTER 2019-05-20 15:59 | Outpatient (CLI) | payer MEDICAID ==
[2019-05-20 17:46] LABS: APPEARANCE,URINE CLEAR; BILIRUBIN,URINE NEGATIVE (NEGATIVE); COLOR,URINE YELLOW; GLUCOSE, URINE NEGATIVE (NEGATIVE); KETONES,URINE NEGATIVE (NEGATIVE); LEUKOCYTE ESTERASE,URINE TRACE (NEGATIVE); NITRITE,URINE NEGATIVE (NEGATIVE); PROTEIN,URINE NEGATIVE (NEGATIVE); URINE SPECIFIC GRAVITY 1.006; UROBILINOGEN,URINE NEGATIVE mg/dL (<2.0)
[2019-05-20 18:08] LABS: URINE AMPHETAMINES SCREEN NEGATIVE; URINE BARBITURATES SCREEN NEGATIVE; URINE BENZODIAZEPINES SCREEN NEGATIVE; URINE COCAINE SCREEN NEGATIVE; URINE MARIJUANA (THC) SCREEN NEGATIVE; URINE METHADONE SCREEN NEGATIVE; URINE PHENCYCLIDINE SCREEN NEGATIVE
== END 2019-05-20 18:43 | disposition home or self-care (01) ==
LOC: LC 15:59
PROVIDERS: ATTEND Obstetrics & Gynecology Gynecology
PROC: 4A1HXCZ Monitoring of Products of Conception, Cardiac Rate, External Approach (ICD-10-PCS; principal; 2019-05-20)
DX: O36.8330 Maternal care for abnormalities of the fetal heart rate or rhythm, third trimester, not applicable or unspecified (principal); O47.03 False labor before 37 completed weeks of gestation, third trimester; Z3A.34 34 weeks gestation of pregnancy
CPT/HCPCS: 59025; 80307; 81001

== ENCOUNTER 2019-05-21 19:39 | Outpatient (CLI) | payer SELFPAY ==
--- NOTE | 2019-05-21 19:47 | Non Stress Test Report ---
Non Stress Test Datetime Report Generated by CPN: 05/21/2019 19:47 DEMOGRAPHIC EGA NST: 34.4 INDICATION Indication for Study (NST) Other: IUP @ 34.4 MONITORING Monitor Explained: Monitor Explained; Test Explained; Patient Verbalized Understanding Time on Monitor: 05/20/2019 16:18 Time off Monitor: 05/20/2019 18:38 NST Duration: 140 NST INTERVENTIONS NST Interventions: PO Hydration; Reposition Patient Physician Notified NST: Dr. Pena BABY A: [id number] BABY A Movement : Present Contraction Frequency : occasional FHR Baseline : 145 Accelerations : 15X15 Decelerations : Variable Variability : Moderate 6-25bpm NST Review: Meets Criteria for Reactive NST NST Review and Verified By : NICOLE Sanchez Results: Reactive NST REPORT Report Trigger: Send Report
[2019-05-21 20:19] LABS: APPEARANCE,URINE SLIGHTLY-CLOUDY; BILIRUBIN,URINE NEGATIVE (NEGATIVE); COLOR,URINE YELLOW; GLUCOSE, URINE NEGATIVE (NEGATIVE); KETONES,URINE NEGATIVE (NEGATIVE); LEUKOCYTE ESTERASE,URINE NEGATIVE (NEGATIVE); NITRITE,URINE NEGATIVE (NEGATIVE); PROTEIN,URINE NEGATIVE (NEGATIVE); URINE SPECIFIC GRAVITY 1.006; UROBILINOGEN,URINE NEGATIVE mg/dL (<2.0)
[2019-05-21 20:41] LABS: URINE AMPHETAMINES SCREEN NEGATIVE; URINE BARBITURATES SCREEN NEGATIVE; URINE BENZODIAZEPINES SCREEN NEGATIVE; URINE COCAINE SCREEN NEGATIVE; URINE MARIJUANA (THC) SCREEN NEGATIVE; URINE METHADONE SCREEN NEGATIVE; URINE PHENCYCLIDINE SCREEN NEGATIVE
--- NOTE | 2019-05-21 22:25 | Non Stress Test Report ---
Non Stress Test Datetime Report Generated by CPN: 05/21/2019 22:25 DEMOGRAPHIC EGA NST: 34.5 INDICATION Indication for Study (NST) Other: lc MONITORING Monitor Explained: Monitor Explained; Test Explained; Patient Verbalized Understanding Time on Monitor: 05/21/2019 21:00 Time off Monitor: 05/21/2019 21:43 NST Duration: 43 NST INTERVENTIONS NST Interventions: PO Hydration; Reposition Patient Physician Notified NST: Dr Araiza BABY A Movement : Present Contraction Frequency : irr FHR Baseline : 140 Accelerations : 15X15 Decelerations : None Variability : Moderate 6-25bpm NST Review: Meets Criteria for Reactive NST NST Review and Verified By : NICOLE Parmar Results: Reactive NST REPORT Report Trigger: Send Report
== END 2019-05-21 22:27 | disposition home or self-care (01) ==
LOC: LC 19:39
PROVIDERS: ATTEND Obstetrics & Gynecology
PROC: 4A1HXCZ Monitoring of Products of Conception, Cardiac Rate, External Approach (ICD-10-PCS; principal; 2019-05-21)
DX: O26.893 Other specified pregnancy related conditions, third trimester (principal); Z3A.34 34 weeks gestation of pregnancy
CPT/HCPCS: 59025; 80307; 81001

== ENCOUNTER 2019-05-27 16:16 | Outpatient (CLI) | payer SELFPAY ==
[2019-05-27 17:19] LABS: AMORPHOUS SEDIMENT,URINE TRACE /HPF; APPEARANCE,URINE CLOUDY; BILIRUBIN,URINE NEGATIVE (NEGATIVE); COLOR,URINE YELLOW; GLUCOSE, URINE NEGATIVE (NEGATIVE); KETONES,URINE NEGATIVE (NEGATIVE); LEUKOCYTE ESTERASE,URINE LARGE (NEGATIVE); NITRITE,URINE NEGATIVE (NEGATIVE); PROTEIN,URINE NEGATIVE (NEGATIVE); URINE SPECIFIC GRAVITY 1.011; UROBILINOGEN,URINE NEGATIVE mg/dL (<2.0)
[2019-05-27 17:46] LABS: UR PRO/CREAT RATIO RESULT 0.2 mg/mg (0.0-0.2); URINE CREATININE 67.3 mg/dL (16-327); URINE PROTEIN 15.4 mg/dL (<12)
[2019-05-27 17:47] LABS: ABSOLUTE EOSINOPHILS # (AUTO) 0.1 10^3/uL (0.0-0.6); ABSOLUTE LYMPHOCYTES (AUTO) 2.2 10^3/uL (0.5-4.7); ABSOLUTE MONOCYTES (AUTO) 0.8 10^3/uL (0.1-1.4); ABSOLUTE NEUT (AUTO) 6.5 10^3/uL (1.7-8.2); BASOPHILS % (AUTO) 0.3 % (0-2); EOSINOPHILS % (AUTO) 1.4 % (0-6); HEMATOCRIT 25.7 % (36.0-47.0); HEMOGLOBIN 8.4 g/dL (12.0-15.5); MEAN CORPUSCULAR HEMOGLOBIN 22.2 pg (27.0-33.4); MEAN CORPUSCULAR HGB CONC 32.6 g/dL (32.0-36.0); MONOCYTES % (AUTO) 8.6 % (3-13); PLATELET COUNT 263 10^3/uL (150-450); RED BLOOD COUNT 3.77 10^6/uL (3.72-5.28); RED CELL DISTRIBUTION WIDTH 17.9 % (11.5-14.0); SEGMENTED NEUTROPHILS % (AUTO) 66.7 % (42-78); TOTAL CELLS COUNTED % (AUTO) 100 %; WHITE BLOOD COUNT 9.8 10^3/uL (4.0-10.5)
[2019-05-27 18:01] LABS: MEAN CORPUSCULAR VOLUME 68 fl (80-97)
[2019-05-27 18:18] LABS: URINE AMPHETAMINES SCREEN NEGATIVE; URINE BARBITURATES SCREEN NEGATIVE; URINE BENZODIAZEPINES SCREEN NEGATIVE; URINE COCAINE SCREEN NEGATIVE; URINE MARIJUANA (THC) SCREEN NEGATIVE; URINE METHADONE SCREEN NEGATIVE; URINE PHENCYCLIDINE SCREEN NEGATIVE
[2019-05-27 18:19] LABS: ALBUMIN 2.9 g/dL (3.7-5.6); ALKALINE PHOSPHATASE 160 U/L (50-135); ANION GAP 7 (5-19); ASPARTATE AMINO TRANSFERASE 17 U/L (5-30); BILIRUBIN,TOTAL 0.3 mg/dL (0.2-1.3); BLOOD UREA NITROGEN 5 mg/dL (7-20); CALCIUM 8.7 mg/dL (8.4-10.2); CARBON DIOXIDE 24 mmol/L (22-30); CHLORIDE 106 mmol/L (98-107); GLUCOSE 75 mg/dL (75-110); POTASSIUM 3.8 mmol/L (3.6-5.0); TOTAL PROTEIN 5.6 g/dL (6.3-8.2); URIC ACID 3.2 mg/dL (2.5-6.2)
--- NOTE | 2019-05-27 18:38 | Non Stress Test Report ---
Non Stress Test Datetime Report Generated by CPN: 05/27/2019 18:37 DEMOGRAPHIC EGA NST: 35.4 INDICATION Indication for Study (NST) Other: labor check VITAL SIGNS Temperature - NST: 98.3 Pulse - NST: 89 RESP - NST: 15 NBPSYS NST: 127 NBPDIA NST: 67 MONITORING Monitor Explained: Monitor Explained; Test Explained; Patient Verbalized Understanding Time on Monitor: 05/27/2019 16:34 Time off Monitor: 05/27/2019 18:32 NST Duration: 118 NST INTERVENTIONS NST Interventions: IV Fluids Physician Notified NST: Dr Zeferino BABY A: [id number] BABY A Movement : Present Contraction Frequency : rare FHR Baseline : 145 Accelerations : 15X15 Decelerations : Variable Variability : Moderate 6-25bpm NST Review: Meets Criteria for Reactive NST NST Review and Verified By : Dari Camp RNC NST Results: Reactive NST COMMENTS NST Comments: MD on unit reviewing FHT strip NST REPORT Report Trigger: Send Report
== END 2019-05-27 18:42 | disposition home or self-care (01) ==
LOC: LC 16:16
PROVIDERS: ATTEND Obstetrics & Gynecology
PROC: 4A1HXCZ Monitoring of Products of Conception, Cardiac Rate, External Approach (ICD-10-PCS; principal; 2019-05-27)
DX: O35.1XX0 Maternal care for (suspected) chromosomal abnormality in fetus, not applicable or unspecified (principal); O14.93 Unspecified pre-eclampsia, third trimester; Z3A.35 35 weeks gestation of pregnancy
CPT/HCPCS: 36415; 59025; 80053; 80307; 81001; 82570; 83615; 84156; 84550; 85025